=== PATIENT | female | born 1940 | race African-American/Black ===

== ENCOUNTER 2020-10-18 15:54 | Outpatient (CLI) | payer MEDICARE, SELFPAY ==
[2020-10-18 16:17] LABS: Basophils Absolute Auto 0.1 K/mm3 (0.0-0.1); Basophils Percent Auto 0.7 % (0.2-1.2); Eosinophils Absolute Auto 0.1 K/mm3 (0-0.3); Eosinophils Percent Auto 1.3 % (0-4.4); Hematocrit 45.2 % (37.0-47.0); Hemoglobin 14.3 g/dL (12.0-15.0); Immature Granulocyte Absolute 0.02 K/mm3 (0.00-0.031); Immature Granulocyte Percent A 0.2 % (0-0.5); Lymphocytes Absolute Auto 3.08 K/mm3 (0.9-3.2); Lymphocytes Percent Auto 36.6 % (18.3-44.2); Mean Corpuscular HGB Conc 31.6 g/dl (32-36); Mean Corpuscular Hemoglobin 27.9 pg (26-34); Mean Corpuscular Volume 88.3 fl (80-100); Mean Platelet Volume 9.9 fl (7.4-10.4); Monocytes Absolute Auto 0.8 K/mm3 (0.1-0.6); Monocytes Percent Auto 9.5 % (2.6-8.5); Neutrophils Absolute Auto 4.4 K/mm3 (1.3-6.7); Neutrophils Percent Auto 51.7 % (45.5-73.1); Platelet Count Result 287 k/mm3 (150-375); Red Blood Count 5.12 M/mm3 (4.2-5.4); Red Cell Distribution Width 15.7 % (11.5-14.5); White Blood Count 8.4 K/mm3 (4.5-10.0)
[2020-10-18 17:20] LABS: Iron 53 ug/dL (37-170)
[2020-10-18 17:31] LABS: Percent Iron Saturation 14 % (20-50)
== END 2020-10-18 15:55 | disposition home or self-care (01) ==
PROVIDERS: PCP Internal Medicine; Visit Provider Internal Medicine Hematology & Oncology
DX: D47.3 Essential (hemorrhagic) thrombocythemia (principal); D50.9 Iron deficiency anemia, unspecified
CPT/HCPCS: 36415; 82728; 83540; 83550; 85025

== ENCOUNTER 2021-08-08 14:29 | Outpatient (CLI) | payer MEDICARE, SELFPAY ==
[2021-08-08 14:49] LABS: Hematocrit 45.9 % (37.0-47.0); Hemoglobin 14.6 g/dL (12.0-15.0); Mean Corpuscular HGB Conc 31.8 g/dl (32-36); Mean Corpuscular Hemoglobin 27.9 pg (26-34); Mean Corpuscular Volume 87.6 fl (80-100); Mean Platelet Volume 9.6 fl (7.4-10.4); Platelet Count Result 288 k/mm3 (150-375); Red Blood Count 5.24 M/mm3 (4.2-5.4); Red Cell Distribution Width 15.6 % (11.5-14.5); White Blood Count 8.7 K/mm3 (4.5-10.0)
[2021-08-08 14:53] LABS: Blood Urea Nitrogen 17 mg/dL (8-26); Carbon Dioxide 28 mmol/L (22-30); Chloride 97 mmol/L (98-109); Estimated Glomerular Filt Rate > 60; Glucose 72 mg/dL (70-105); Potassium 4.5 mmol/L (3.5-4.9); Sodium 141 mmol/L (138-146)
[2021-08-08 16:24] LABS: Iron 111 ug/dL (37-170)
[2021-08-08 16:36] LABS: Percent Iron Saturation 33 % (20-50)
== END 2021-08-08 14:30 | disposition home or self-care (01) ==
LOC: ANHLAB 14:31
PROVIDERS: PCP Internal Medicine; Visit Provider Internal Medicine Hematology & Oncology
DX: D50.9 Iron deficiency anemia, unspecified (principal)
CPT/HCPCS: 36415; 80048; 82728; 83540; 83550; 85027

== ENCOUNTER 2022-12-20 08:24 | Outpatient (CLI) | payer MEDICARE, SELFPAY ==
--- NOTE | 2022-12-20 09:23 | ECG_ITS ---
Measurements Intervals [place] Rate: 81 P: 32 FL: 147 QRS: -6 QRSD: 97 T: 137 QT: 394 QTc: 458 Interpretive Statements SINUS RHYTHM POSSIBLE LEFT ATRIAL ENLARGEMENT LEFT VENTRICULAR HYPERTROPHY AND ST-T CHANGE BORDERLINE T WAVE ABNORMALITY- ANTEROLATERAL LEADS BORDERLINE ECG NO PREVIOUS ECG AVAILABLE FOR COMPARISON Electronically Signed On 12-20-2022 10:07:53 [employer] by Janes Puga D.O.
[2022-12-20 10:02] LABS: Basophils Absolute Auto 0.1 K/mm3 (0.0-0.1); Basophils Percent Auto 0.7 % (0.2-1.2); Eosinophils Absolute Auto 0.1 K/mm3 (0-0.3); Eosinophils Percent Auto 1.9 % (0-4.4); Hematocrit 45.9 % (37.0-47.0); Hemoglobin 14.5 g/dL (12.0-15.0); Immature Granulocyte Absolute 0.02 K/mm3 (0.00-0.031); Immature Granulocyte Percent A 0.3 % (0-0.5); Lymphocytes Absolute Auto 2.01 K/mm3 (0.9-3.2); Lymphocytes Percent Auto 26.7 % (18.3-44.2); Mean Corpuscular HGB Conc 31.6 g/dl (32-36); Mean Corpuscular Hemoglobin 28.7 pg (26-34); Mean Corpuscular Volume 90.7 fl (80-100); Mean Platelet Volume 10.2 fl (7.4-10.4); Monocytes Absolute Auto 0.8 K/mm3 (0.1-0.6); Monocytes Percent Auto 10.6 % (2.6-8.5); Neutrophils Absolute Auto 4.5 K/mm3 (1.3-6.7); Neutrophils Percent Auto 59.8 % (45.5-73.1); Platelet Count Result 303 k/mm3 (150-375); Red Blood Count 5.06 M/mm3 (4.2-5.4); Red Cell Distribution Width 15.2 % (11.5-14.5); White Blood Count 7.5 K/mm3 (4.5-10.0)
[2022-12-20 10:11] LABS: Albumin Level 4.5 g/dL (3.5-5.1); Anion Gap 6 mmol/L (8-16); Blood Urea Nitrogen 14 mg/dL (7-17); Calcium 9.3 mg/dL (8.4-10.2); Carbon Dioxide 32 mmol/L (22-30); Chloride 101 mmol/L (98-107); Estimated Glomerular Filt Rate > 60; Glucose 92 mg/dL (65-110); Potassium 4.5 mmol/L (3.4-5.0); Sodium 139 mmol/L (137-145)
[2022-12-20 10:46] LABS: Hemoglobin A1C 5.8 % (<5.7)
[2022-12-20 11:22] LABS: Urine Cotinine NEGATIVE
== END 2022-12-20 08:25 | disposition home or self-care (01) ==
LOC: ANHSURGERY 08:29
PROVIDERS: PCP Internal Medicine; Visit Provider Orthopaedic Surgery
DX: M17.0 Bilateral primary osteoarthritis of knee (principal); Z01.818 Encounter for other preprocedural examination; R94.31 Abnormal electrocardiogram [ECG] [EKG]
CPT/HCPCS: 80048; 80307; 82040; 83036; 85025; 87081; 93005

== ENCOUNTER 2022-12-28 08:06 | Outpatient (CLI) | payer MEDICARE, SELFPAY ==
--- NOTE | 2022-12-28 | EST_ITS ---
Patient Info Name: Libby Mcgill Age: 82 years : 1940 Gender: Female Ht: 64 in Wt: 210 lbs BSA: 2.12 m2 HR: 83 bpm BP: 154 / 89 mmHg Exam Date: 12/28/2022 9:55 AM Exam Location: [facility] Stress Patient Status: Outpatient Admit Date: 12/28/2022 Staff Ordering Physician: Lelo Ramos APRN Attending Provider: Lelo Ramos APRN Referring Physician: Alaina Peralta MD; Exercise Technologist: Adriana Moseley RDCS Exercise Physician: Janes Puga DO Exam Type: CA stress karen w NM Study Info Indications - CAD, HTN, PRE-OP A regadenoson stress test was performed. Summary 1. 1. Negative lexiscan stress test for ischemic ST changes by ECG criteria. 2. 2. Baseline hypertension. 3. 3. Nuclear scan to follow and will be reported separately. Please correlate with it. 4. 4. Patient informed of the above results. Protocol: Lexiscan Stress ECG Details Stage: REST Duration (min): 2 min : 8 sec HR (bpm): 81 SBP (mmHg): 154 DBP (mmHg): 89 Stage: REST Duration (min): 7 min : 18 sec HR (bpm): 85 SBP (mmHg): 154 DBP (mmHg): 89 Stage: STAGE 1 Duration (min): 0 min : 59 sec HR (bpm): 92 SBP (mmHg): 159 DBP (mmHg): 85 Stage: RECOVERY Duration (min): 1 min : 0 sec HR (bpm): 95 SBP (mmHg): 149 DBP (mmHg): 83 Stage: RECOVERY Duration (min): 2 min : 0 sec HR (bpm): 94 SBP (mmHg): 149 DBP (mmHg): 83 Stage: RECOVERY Duration (min): 3 min : 0 sec HR (bpm): 91 SBP (mmHg): 157 DBP (mmHg): 82 Stage: RECOVERY Duration (min): 3 min : 9 sec HR (bpm): 93 SBP (mmHg): 157 DBP (mmHg): 82 Rest HR: 85 bpm Peak HR: 96 bpm Rest Sys BP: 154 mmHg Peak Sys BP: 159 mmHg Max Pred HR: 139 bpm % Max Pred HR: 69 % Target HR: 118 bpm Max RPP: 15,264 bpm*mmHg Termination Reason: Completed protocol Cardiac Symptoms: Shortness of breath Total Time: 1 min : 0 sec Rest Powell BP: 89 mmHg Peak Powell BP: 85 mmHg Total Dose: 0.4 mg Resting ECG Sinus rhythm, borderline ST-T wave abnormality in diffuse leads. Stress ECG No ST changes. Arrhythmias None. Report Signatures
--- NOTE | ~2022-12-28 | NM_ITS ---
EXAMINATION: NM karen stress w perfusion DATE: 12/28/2022 11:17 INDICATION: Coronary atherosclerosis. TECHNIQUE: Rest images were obtained following intravenous administration of 11.6 mCi Tc99m tetrofosm in (Myoview). The patient was infused intravenously with Lexiscan (regadenoson). Then, 34.9 mCi Tc99m tetrofosmin (Myoview) was administered intravenously, and stress images were obtained. Data was codie nstructed into short axis and horizontal and vertical long axis SPECT images. Gated SPECT images were also obtained. COMPARISON: None. FINDINGS: There is a large, moderate severity, reversible perfusion defect involving mid to basal ant eroseptal wall, apical to basal anterior wall, and mid to basal anterolateral wall, consistent with i schemia. There is no segmental wall motion abnormality. Left ventricular ejection fraction measures >70%. IMPRESSION: 1. Large area of moderate ischemia involving the mid to basal anteroseptal wall, apical to basal ante rior wall, and mid to basal anterolateral wall of left ventricle. Sensitivity and specificity is decr eased by breast attenuation artifact. 2. Normal left ventricular ejection fraction measuring >70%. Reviewed, dictated and finalized at location A. IMPRESSION: 1. Large area of moderate ischemia involving the mid to basal anteroseptal wall , apical to basal anterior wall, and mid to basal anterolateral wall of left ve ntricle. Sensitivity and specificity is decreased by breast attenuation artifac t. 2. Normal left ventricular ejection fraction measuring >70%.
== END 2022-12-28 08:07 | disposition home or self-care (01) ==
PROVIDERS: PCP Internal Medicine; Referring Provider Internal Medicine Cardiovascular Disease; Visit Provider Nurse Practitioner Family
DX: I25.10 Atherosclerotic heart disease of native coronary artery without angina pectoris (principal); I25.9 Chronic ischemic heart disease, unspecified; I27.0 Primary pulmonary hypertension; R06.02 Shortness of breath; Z87.891 Personal history of nicotine dependence; E78.5 Hyperlipidemia, unspecified; E11.9 Type 2 diabetes mellitus without complications; Z01.810 Encounter for preprocedural cardiovascular examination
CPT/HCPCS: 78452; 93017; A9502; J2785

== ENCOUNTER 2023-03-20 09:15 | Outpatient (CLI) | payer MEDICARE, SELFPAY ==
[2023-03-20 10:38] LABS: Albumin Level 4.3 g/dL (3.5-5.1)
[2023-03-20 10:42] LABS: Anion Gap 2 mmol/L (8-16); Blood Urea Nitrogen 15 mg/dL (7-17); Calcium 9.3 mg/dL (8.4-10.2); Carbon Dioxide 35 mmol/L (22-30); Chloride 101 mmol/L (98-107); Estimated Glomerular Filt Rate > 60; Glucose 105 mg/dL (65-110); Potassium 4.9 mmol/L (3.4-5.0); Sodium 138 mmol/L (137-145)
[2023-03-20 10:44] LABS: Basophils Absolute Auto 0.1 K/mm3 (0.0-0.1); Basophils Percent Auto 0.6 % (0.2-1.2); Eosinophils Absolute Auto 0.1 K/mm3 (0-0.3); Eosinophils Percent Auto 1.2 % (0-4.4); Hematocrit 44.7 % (37.0-47.0); Immature Granulocyte Absolute 0.04 K/mm3 (0.00-0.031); Immature Granulocyte Percent A 0.5 % (0-0.5); Lymphocytes Absolute Auto 2.32 K/mm3 (0.9-3.2); Lymphocytes Percent Auto 27.9 % (18.3-44.2); Mean Corpuscular HGB Conc 31.3 g/dl (32-36); Mean Corpuscular Hemoglobin 28.8 pg (26-34); Monocytes Absolute Auto 0.7 K/mm3 (0.1-0.6); Monocytes Percent Auto 8.3 % (2.6-8.5); Neutrophils Absolute Auto 5.1 K/mm3 (1.3-6.7); Neutrophils Percent Auto 61.5 % (45.5-73.1); Platelet Count Result 304 k/mm3 (150-375); Red Blood Count 4.86 M/mm3 (4.2-5.4); Red Cell Distribution Width 14.9 % (11.5-14.5); White Blood Count 8.3 K/mm3 (4.5-10.0)
[2023-03-20 10:47] LABS: Urine Cotinine NEGATIVE
[2023-03-20 11:12] LABS: Hemoglobin A1C 5.7 % (<5.7)
== END 2023-03-20 09:16 | disposition home or self-care (01) ==
LOC: ANHSURGERY 09:21
PROVIDERS: Anesthesiology; PCP Internal Medicine; Visit Provider Orthopaedic Surgery
DX: Z01.812 Encounter for preprocedural laboratory examination (principal); M17.12 Unilateral primary osteoarthritis, left knee; E11.9 Type 2 diabetes mellitus without complications
CPT/HCPCS: 36415; 80048; 80307; 82040; 83036; 85025; 87081

== ENCOUNTER 2023-04-02 12:54 | Observation (INO) | payer MEDICARE, SELFPAY ==
[2023-03-19 10:31] VITALS: BMI 37.8
--- NOTE | 2023-03-19 11:05 | PC.NURSE ---
PRE-OP INSTRUCTIONS, PLEASE READ CAREFULLY Report to the Outpatient Waiting Room, entrance under the green pavilion located off [facility], at time _0600_ on date _04/01/23_. Planned Procedure Time: _0730_. PACK A SMALL OVERNIGHT BAG AND LEAVE IN THE CAR ALONG WITH YOUR WALKER Time changes happen often and if your time is changed the preop area will call you the afternoon before. - You and your visitor will be asked to self-screen and do not enter if you have any COVID symptoms. - A mask is optional within the hospital at this time. -VISITING HOURS 8AM-8PM Patients may have clear liquids (water, carbonated beverages, clear teas, apple juice) until 3 hours prior to surgery (0430 AM) with a maximum of 20 ounces. - No food from midnight until time of surgery Take the following medications with a SIP of water the morning of surgery: _ARIPIPRAZOLE, PAIN MED & NASAL SPRAY IF NEEDED_ DO NOT STOP ANY OF YOUR OTHER PRESCRIPTION MEDICATIONS PRIOR TO SURGERY ?EXCEPT THE FOLLOWING Medications to discontinue _SULINDAC PER DR. LEAL'S INSTRUCTIONS__ Medications to discontinue per ANESTHESIA - _MULTIVITAMIN 3 DAYS PRIOR TO SURGERY, Date to take last dose 03/28/23_ Please no make-up, nail french, hairspray, perfume, deodorant, or body powder the day of surgery. No jewelry (including any body piercings) or valuables the day of surgery, leave them at home. Please take a shower or bath the night before, or the morning of, surgery with an antibacterial soap. Wear comfortable, loose fitting clothing. - Jewelry must be removed prior to entering the operating room. Rings and piercings that are not removed may be cut off. - The hospital will not accept responsibility for valuables. - Please leave all valuables, including medications, at home the day of surgery. If you are going home after surgery, a licensed lumber stacker driver must drive you home. - NO public transportation without another adult if you receive anesthesia. - We recommend that an adult stay with you for 24 hours following discharge. - We also recommend that you do not drive, make important decision, drink alcoholic beverages, or take any drugs that were not prescribed by your health care provider for at least 24 hours after your discharge time. Follow any additional instructions given to you from your surgeon. If you or anyone in your household have experienced Covid symptoms in the past week, please notify your surgeon or the nurse liaison at the phone number below for possible testing. Telephone instructions given to _PATIENT_and asked if any additional questions and then verbalized understanding. Patient advised to call surgeon office or pre surgery nurse liaison [phone] if any additional questions.
[2023-04-01] VITALS (16 sets, daily range): BP systolic 122–189; BP diastolic 59–90; PULSE 69–99; RESP 12–18; TEMP 36–37.1; O2SAT 94–100
--- NOTE | 2023-04-01 07:56 | WPDANESEPPF ---
Anes - Initial Pre Proc Eval Procedure: Operation Date: 04/01/23 07:30 Proposed Procedures p Right Total Knee Arthroplasty, Left Knee Injection - Salvatore Mike MD Date/Time: 04/01/23 07:56 Surgeon: Salvatore Mike MD Pre Op Diagnosis: bilat OA knees Patient Data Age: 82 Gender: F Height: 1.63 m Weight: 100 kg Allergies Allergy/AdvReac Type Severity Reaction Status Date / Time lisinopril Allergy Severe Anaphylaxis Verified 03/20/23 08:34 Penicillins Allergy Unknown Rash Verified 03/20/23 08:34 aspirin Allergy Nausea Verified 03/20/23 08:34 Home Medications Medication Instructions Recorded Confirmed Type amlodipine 10 mg tablet 10 mg PO HS 10/06/19 03/20/23 History calcium carbonate 500 mg calcium 500 mg PO DAILY 10/06/19 03/20/23 History (1,250 mg) tablet (Calcium 500) duloxetine 30 mg capsule,delayed 60 mg PO HS 10/06/19 03/20/23 History release fluticasone propionate 50 1 spray intranasal BID PRN 10/06/19 03/20/23 History mcg/actuation nasal Congestion spray,suspension insulin detemir U-100 100 unit/mL 30 unit subcut HS 10/06/19 03/20/23 History (3 mL) subcutaneous pen iron 18 mg tablet 18 mg PO DAILY 10/06/19 03/20/23 History multivitamin (Daily Multi-Vitamin 1 tablet PO DAILY 10/06/19 03/20/23 History tablet) omeprazole 40 mg capsule,delayed 40 mg PO HS 10/06/19 03/20/23 History release potassium 75 mg tablet 1 mg PO HS 10/06/19 03/20/23 History rosuvastatin 40 mg tablet 40 mg PO HS 10/06/19 03/20/23 History sulindac 200 mg tablet 200 mg PO HS 10/06/19 03/20/23 History tolterodine 2 mg tablet 2 mg PO HS 10/06/19 03/20/23 History aripiprazole 2 mg tablet 2 mg PO DAILY 07/16/22 03/20/23 History polyethylene glycol 3350 17 17 g PO DAILY 12/20/22 03/20/23 History gram/dose oral powder (Miralax) timolol maleate 0.5 % eye drops 1 drp BID 03/19/23 03/20/23 History tramadol 50 mg tablet 1 mg BID PRN Pain 03/19/23 03/20/23 History Patient hx anesthesia problems: none Family hx anesthesia problems: none Results Review: All pre-operative results and documents have been reviewed as part of the pre-operative evaluation. 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 Hypertension Neuropathy Obesity Sleep apnea Ulcer Urinary problem INCONTINENCE Surgical History Surgical History H/O colonoscopy H/O tubal ligation H/O: hysterectomy VAGINAL History of tonsillectomy Social History Social History Years smoked: 10 Smoking status: Former smoker Tobacco type: cigarettes Second hand tobacco smoke exposure: No Smoking end date: 10/14/74 Additional smoking assessment comments: PT DENIES ALL FORMS OF TOBACCO USE Alcohol intake: current Drinks per week: 3 Alcohol use details: STATES 0-3/WEEK Substance use: never Substance use type: does not use Lack of Transportation: No Lack of Food: Never True Current Housing: I Have Housing Concerned About Future Housing: No Difficulty Paying Gas/Electric Bills: No Difficulty Paying for Meds: No Currently Unemployed: No Education: Master's Degree or Higher Difficulty w/ Childcare or Family Care: No Living arrangements: with family Additional living arrangements comments: Occupation/Education: retired Gender identity (if verbalized by the patient): Female Sexual Orientation (if Verbalized by the Patient): Straight or Heterosexual Spiritual care concerns: Yes ( Moravian) Agree to blood products: No Anes - Eval Final PreProcedure Day of Procedure 04/01/23 07:56 Patient weight: obese Heart: regular rate and rhythm Lungs: clear to auscultation Airway:
--- NOTE | 2023-04-01 08:03 | WPDHPUPDATE1 ---
History and Physical Update Update Date/Time: 04/01/23 08:03 History and Physical has been reviewed, including an updated exam of the patient. There are NO changes in the patient's condition. Risks, benefits, and alternatives have been discussed and questions answered. Patient agrees to proceed with procedure.
[2023-04-01 08:22] LABS: Glucose Point of Care 112 mg/dl (65-105)
[2023-04-01] MEDS: ACETAMINOPHEN 500 MG TABLET 1000 MG PO (08:25)
[2023-04-01] MEDS: TRANEXAMIC ACID 1,000MG/ISO100 1,000 MG/100 ML BAG 200 MG IVPB (08:25)
[2023-04-01] MEDS: LACTATED RINGERS 1,000 ML 30 ML IV CONT ×2 (08:25→12:16)
--- NOTE | 2023-04-01 08:36 | WPDANESPNB ---
Anes - Peripheral Nerve Block Date/Time: 04/01/23 08:36 I have discussed with the patient/family/POA the placement of a peripheral nerve block for post-operative pain management, including associated risks, benefits, complications, and side effects. Alternative methods of post-operative analgesia were detailed. Questions were solicited and answers provided to the satisfaction of the patient/family/POA. Time-Out: A pre-procedural Time-Out was completed immediately before starting the procedure and confirmed: Patient Identification, Site, Procedure, Patient Position and the Availability of Requisite Equipment. Clinical Indications: Acute post-operative pain management requested by the operative surgeon. Nerve Block Insertion Note Anes-nerve block: adductor canal right Patient position: supine Skin prep: chlorhexidine Needle: 22 gauge, stimulating, insulated echogenic needle. Needle length: 80 mm Technique: ultrasound Injectate: bupivacaine 0.5% with epi 5 mcg/ml (20cc no epi) Observations: tolerated well Complications: none Procedure start time:: 834 Procedure end time:: 839
[2023-04-01] MEDS: ceFAZolin 2 GM/D5W 50 ML 2 GM/50 ML BAG IVPB ×2 (08:51→16:32)
--- NOTE | 2023-04-01 08:56 | SUR.PREOP ---
dr lee told us not to shave, ramez did notice a few hairs on glez, but dr lee said not to worry about shaving her.
[2023-04-01] MEDS: GENTAMICIN BONE CEMENT REFOBACIN 1 EACH TOPICAL (10:00)
[2023-04-01] MEDS: LIDOCAINE HCL 1% LOCAL INJ 20 ML VIAL INFILTRATE (10:47)
[2023-04-01] MEDS: ceFAZolin SODIUM 1 GM VIAL IV PUSH (11:20)
--- NOTE | 2023-04-01 12:14 | W.PM.PROC2 ---
Procedure Note - Detailed Date of Procedure 04/01/23 Pre-op Diagnosis bilat OA knees Post-op Diagnosis Same Procedure Performed 1. Right total knee replacement 2. Injection left knee Surgeon Salvatore Mike MD Experienced Truck Driver Ana Maurice Anesthesia General and Regional Description of Procedure The patient was identified and proper site identified. In the preop holding area the anesthesia team performed a right-sided sub sartorial block after which the patient was taken to the operating room and transferred to the OR table positioning supine taking care to pad the torso and extremities. After general anesthetic induction and intubation a nonsterile tourniquet was placed high on the right thigh. While the right leg was being prepped, the left knee was injected intra-articularly with 2 milliliters of 1% lidocaine and 20 milligrams of Kenalog. Band-Aid was applied. The Right lower extremity was prepped and draped in the usual sterile fashion. The extremity was exsanguinated and with the knee flexed tourniquet was inflated to 300 mmHg remaining up for approximately 13 minutes initially. It then was down for 117 minutes and then reinflated for an additional 25 minutes towards the end of the procedure. An anterior midline incision was made and a modified medial parapatellar approach was used. Infra and suprapatellar fat pads were excised. Patella was resected leaving 15 mm thickness and prepared for the size 29 round three peg component. At this point it was evident that we had a venous tourniquet because of the girth of her thigh so the tourniquet was released for the majority of the procedure. Using the intramedullary guide the distal femur was cut in the proper orientation for the size six femoral component. Using the extramedullary guide the tibia was cut perpendicular to the long axis protecting collateral ligaments and popliteal structures. It was sized to a 6 minus. Flexion and extension gaps were balanced. Trial reduction was undertaken and the weight-bearing line was noted to passed through the center of the joint. Proximal tibia was drilled and punched in the proper orientation for the real component. The extremity was re-exsanguinated and the tourniquet reinflated to 300 millimeters of mercury for the final 25 minutes. Trial components were removed. The bone surfaces were washed with pulsatile lavage and dried. The real components were cemented simultaneously. The knee was held in extension and the patella held clamped until the cement had cured. The tourniquet was released. Excess cement was removed from the joint. After trialing it was determined that the Size 14 mm insert gave full range of motion from 0-115 degrees of flexion and the patella tracked in the femoral groove with no lift-off. After final lavage the joint the real size 14 E poly insert was placed and secured with a locking bar. A Betadine and saline wash was placed into the wound and allowed to sit for approximately 3 minutes and then evacuated. Periarticular tissues were infiltrated with 60 cc of the arthroplasty solution. Surgicel powder was applied into the wound during the closure. The extensor mechanism was repaired with #2 Vicryl suture and 0 looped PDS suture. Subcu was reapproximated with 3-0 Monocryl, 2-0 Quill and tissue adhesive for the skin. A sterile dressing was applied. she tolerated the procedure well, was awakened and extubated, transferred to the bed and was taken to recovery area in stable condition. There were no known intraoperative complications. Perioperative antibiotics were administered. Estimated Blood Loss 500 Tourniquet Time 38 ( that was total tourniquet time. It was up for 13 minutes and then 25 minutes.) Drains No Packing No Pathology None sent Complications No immediate complications Condition Stable Disposition PACU [facility] Billing Surgery - Charge Forward: Surgery Billing ([id number]; [id number])
[2023-04-01 12:26] LABS: Glucose Point of Care 138 mg/dl (65-105)
[2023-04-01] MEDS: fentaNYL CITRATE INJ (*CRX) 100 MCG/2 ML VIAL 25 MCG IV PUSH ×3 (12:46→13:52)
[2023-04-01] MEDS: HYDROcodone/acetaminophen (*CRX) 7.5-325 MG TABLET 1 TAB PO ×2 (15:39→21:36)
[2023-04-01 16:29] LABS: Glucose Point of Care 190 mg/dl (65-105)
[2023-04-01] MEDS: TIMOLOL MALEATE 0.5% OP SOLN 5 ML BOTTLE 1 DROP EACH EYE (16:30)
[2023-04-01] MEDS: SENNA/DOCUSATE SODIUM TABLET 2 TAB PO (16:31)
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
--- NOTE | 2023-04-01 16:59 | ADMGEN ---
This patient, Libby Mcgill, was admitted to [facility] Surg Room 314-01. Patient/family oriented to hospital policies and general routines including ID bracelet, bed and alarms, visiting hours, pain management, procedures, bathroom and other care routines, personal items, smoking policy, room service/diet, and visiting hours. Information on how to activate the Rapid Response Team has been discussed. Patient/Family are encouraged to report perceived risks to care and to ask questions if they do not understand what they are told or what they should do.
--- NOTE | 2023-04-01 16:59 | PC.NURSE ---
Pt sleeping when she arrived to the floor post op. Pt reports pain in the right knee. Pt states it feels like a hammer hitting her knee. Pt treated with scheduled [place]. Pt expresses no other needs at this time. Pt resting in bed with at bedside. Cold therapy ordered and will apply when delivered to unit. Will continue to monitor pt for any changes in status.
[2023-04-01] MEDS: TOLTERODINE TARTRATE 2 MG TABLET PO (21:35)
[2023-04-01] MEDS: amLODIPine BESYLATE 5 MG TABLET 10 MG PO (21:35)
[2023-04-01] MEDS: DULoxetine HCL 60 MG CAPSULE.DR PO (21:36)
[2023-04-01] MEDS: ROSUVASTATIN 10 MG TABLET 40 MG PO (21:36)
[2023-04-01] MEDS: PANTOPRAZOLE 40 MG TABLET PO (21:36)
--- NOTE | ~2023-04-02 | XR_ITS ---
Right Knee Technique: Portable AP and crosstable lateral views Clinical History: Status post TKR Findings: Patient is status post total knee replacement. Orthopedic hardware alignment appears anatom ic. No hardware complication is evident. Subcutaneous emphysema and swelling is likely postoperative in nature. No acute osseous fracture is seen. Impression: Status post total knee replacement, without evidence of hardware complication. Reviewed, dictated and finalized at location . Impression: Status post total knee replacement, without evidence of hardware complication.
[2023-04-02] MEDS: FLUTICASONE PROPIONATE 0.05% NA SPR 16 GM BTL (*BKC) 1 SPRAY NASAL (00:38)
[2023-04-02] MEDS: HYDROcodone/acetaminophen (*CRX) 7.5-325 MG TABLET 1 TAB PO ×6 (00:38→20:07)
[2023-04-02] MEDS: ceFAZolin 2 GM/D5W 50 ML 2 GM/50 ML BAG IVPB ×2 (00:40→09:41)
[2023-04-02 06:00] VITALS: BP 127/63; PULSE 82; RESP 14; TEMP 36.6; O2SAT 97
[2023-04-02 06:23] LABS: Basophils Percent Auto 0.1 % (0.2-1.2); Hematocrit 35.4 % (37.0-47.0); Hemoglobin 11.3 g/dL (12.0-15.0); Immature Granulocyte Absolute 0.06 K/mm3 (0.00-0.031); Immature Granulocyte Percent A 0.4 % (0-0.5); Lymphocytes Absolute Auto 1.71 K/mm3 (0.9-3.2); Lymphocytes Percent Auto 11.3 % (18.3-44.2); Mean Corpuscular HGB Conc 31.9 g/dl (32-36); Mean Corpuscular Hemoglobin 29.4 pg (26-34); Mean Corpuscular Volume 92.2 fl (80-100); Mean Platelet Volume 9.8 fl (7.4-10.4); Monocytes Absolute Auto 1.4 K/mm3 (0.1-0.6); Monocytes Percent Auto 8.9 % (2.6-8.5); Neutrophils Percent Auto 79.3 % (45.5-73.1); Platelet Count Result 272 k/mm3 (150-375); Red Blood Count 3.84 M/mm3 (4.2-5.4); Red Cell Distribution Width 14.8 % (11.5-14.5); White Blood Count 15.1 K/mm3 (4.5-10.0)
[2023-04-02 06:33] LABS: Hemoglobin A1C 5.6 % (<5.7)
[2023-04-02 06:38] LABS: Anion Gap 5 mmol/L (8-16); Blood Urea Nitrogen 15 mg/dL (7-17); Calcium 8.4 mg/dL (8.4-10.2); Carbon Dioxide 29 mmol/L (22-30); Chloride 102 mmol/L (98-107); Estimated CRCL calculation 61 ml/min; Estimated Glomerular Filt Rate > 60; Glucose 179 mg/dL (65-110); Potassium 4.6 mmol/L (3.4-5.0); Sodium 136 mmol/L (137-145)
[2023-04-02 07:34] LABS: Glucose Point of Care 185 mg/dl (65-105)
[2023-04-02] MEDS: CALCIUM CARBONATE (OSCAL) 500 MG TABLET PO (09:37)
[2023-04-02] MEDS: MULTIVITAMINS THERAPEUTIC TAB (*BKC) 1 TABLET PO (09:37)
[2023-04-02] MEDS: PANTOPRAZOLE 40 MG TABLET PO ×2 (09:38→20:07)
[2023-04-02] MEDS: SENNA/DOCUSATE SODIUM TABLET 2 TAB PO ×2 (09:38→18:26)
[2023-04-02] MEDS: FERROUS SULFATE DRIED 142 MG TABCR PO (09:38)
[2023-04-02] MEDS: RIVAROXABAN 10 MG TABLET PO (09:38)
[2023-04-02] MEDS: TIMOLOL MALEATE 0.5% OP SOLN 5 ML BOTTLE 1 DROP EACH EYE ×2 (09:38→18:26)
[2023-04-02] MEDS: ARIPiprazole 2 MG TABLET PO (09:38)
[2023-04-02] MEDS: polyethylene glycoL 3350 17 GM POWD.PACK PO (09:39)
[2023-04-02 10:02] VITALS: O2SAT 94
[2023-04-02 11:16] LABS: Glucose Point of Care 147 mg/dl (65-105)
--- NOTE | 2023-04-02 11:19 | PM.PNORT ---
Progress Note: A&P Assessment and Plan (1) S/P total knee arthroplasty: Code(s): Z96.659 - Presence of unspecified artificial knee joint Status: Acute Plan 82-year-old female postop day 1 after right total knee arthroplasty. Overall doing well. Pressure dressing has been applied to the distal portion of the surgical incision. No sign of infection. Will continue to monitor this. Will plan on discharge tomorrow. This should give us enough time to have home PT set up for her. Subjective Subjective Date/Time Seen: 04/02/23 11:20 Interval history: 82-year-old female postop day 1 after right total knee arthroplasty. Overall doing very well. She has had some drainage from the distal part of the surgical incision. She feels that she is progressing well with therapy. Appreciate hospitalist consult. Review of Systems Constitutional: Constitutional: Denies chills, Denies fever(s), Denies night sweats and Denies weakness Eyes: Eyes: Denies change in vision ENT: Reports Normal hearing present and Denies dizziness Cardiovascular: Cardiovascular: Denies chest pain, Denies lightheadedness and Denies dyspnea on exertion Respiratory: Respiratory: Denies dyspnea on exertion Gastrointestinal: Gastrointestinal: Denies abdominal pain Genitourinary: Genitourinary: Denies dysuria Musculoskeletal: Musculoskeletal: Reports no additional musculoskeletal complaints and Reports as per HPI Integumentary/Breasts: Skin/Breast: Denies lesions and Denies wounds Neurologic: Reports Normal hearing present, Denies confusion, Denies dizziness and Denies weakness Psychiatric: Psychiatric: Denies confusion and Denies paranoia Hematologic/Lymphatic: Hematologic/Lymphatic: Denies easy bleeding and Denies easy bruising Exam Const: General: comfortable and no acute distress Resp: Effort & Inspection: normal respiratory effort GI: Inspection: non-distended Skin: General skin exam: normal color, no rashes or lesions noted and no erythema Other: Exam of the surgical dressing shows that there is serosanguineous drainage at the distal portion of the site. Gauze and pressure dressing was applied. Neuro: Sensory Exam: normal sensation Extrem: Other: Exam of the right knee demonstrates swelling consistent with recent surgical procedure. No erythema. Neurovascular status right lower extremity is intact. Psych: Mental Status: mental status grossly normal Objective Data Vital Signs Vital Signs: Vital Signs - 24 hr 04/01/23 12:16 04/01/23 12:30 04/01/23 12:45 Temperature 97.9 F Pulse Rate 73 73 79 Respiratory Rate 12 14 12 Blood Pressure 181/87 H 163/84 H 189/89 H Pulse Oximetry 100 99 100 Oxygen Delivery Simple Face Mask Simple Face Mask Simple Face Mask Oxygen Flow Rate 6 6 6 04/01/23 13:00 04/01/23 13:15 04/01/23 13:30 Temperature Pulse Rate 82 82 84 Respiratory Rate 12 12 12 Blood Pressure 175/89 H 164/86 H 179/90 H Pulse Oximetry 97 96 97 Oxygen Delivery Nasal Cannula Nasal Cannula Nasal Cannula Oxygen Flow Rate 2 2 2 04/01/23 13:45 04/01/23 13:55 04/01/23 14:13 Temperature 97.2 F L 97.6 F Pulse Rate 84 79 79 Respiratory Rate 12 14 14 Blood Pressure 177/70 H 139/80 132/78 Pulse Oximetry 96 97 100 Oxygen Delivery Nasal Cannula Nasal Cannula Oxygen Flow Rate 2 2 04/01/23 14:42 04/01/23 15:43 04/01/23 19:43 Temperature 97.9 F 97.7 F 98.7 F Pulse Rate 89 99 86 Respiratory Rate 14 14 18 Blood Pressure 144/70 H 130/71 128/63 Pulse Oximetry 100 98 97 Oxygen Delivery Oxygen Flow Rate 04/01/23 22:00 04/01/23 22:46 04/01/23 23:43 Temperature 97.9 F 97.8 F Pulse Rate 85 69 89 Respiratory Rate 14 16 16 Blood Pressure 122/59 L 158/61 H Pulse Oximetry 96 94 100 Oxygen Delivery CPAP Oxygen Flow Rate 04/02/23 06:00 04/02/23 07:52 04/02/23 09:47 Temperature 97.8 F Pulse Rate 82 Respiratory Rate 14 Blood Pressure 127/63 Pulse Oximetry 97 Oxygen
--- NOTE | 2023-04-02 11:47 | PM.IMPN ---
Progress Note: A&P Assessment and Plan (1) S/P total knee arthroplasty: Code(s): Z96.659 - Presence of unspecified artificial knee joint Status: Acute Assessment and Plan: Postop care per Dr. Mike DVT prophylaxis per Orthopedic the patient is on Xarelto and has SCDs Pain management per Ortho. PT OT per ortho. (2) Diabetes: Code(s): E11.9 - Type 2 diabetes mellitus without complications Status: Acute Assessment and Plan: Accu-Cheks AC and HS with sliding scale insulin. Continue with diabetic on the treated carbohydrate diet (3) Hypertension: Code(s): I10 - Essential (primary) hypertension Status: Acute Assessment and Plan: Continue with amlodipine (4) Depression: Code(s): F32.A - Depression, unspecified Status: Acute Assessment and Plan: Continue with Abilify (5) Anxiety: Code(s): F41.9 - Anxiety disorder, unspecified Status: Acute Assessment and Plan: Continue with duloxetine (6) Sleep apnea: Code(s): G47.30 - Sleep apnea, unspecified Status: Acute Assessment and Plan: I did order her a CPAP. The patient stated that her CPAP was too big to bring here with her today. (7) Hyperlipidemia: Code(s): E78.5 - Hyperlipidemia, unspecified Status: Acute Assessment and Plan: Continue with Crestor Plan Thank you for this consult. We will continue to manage alongside you. Subjective Date/time seen: 04/02/23 11:47 Interval history: No complaints today. Vitals are stable. Exam Const: General: cooperative, healthy appearing, comfortable, no acute distress, well developed, awake, Physically active, average body habitus and well nourished Nutritional Appearance: average body habitus and well nourished Orientation/consciousness: oriented to person, oriented to place, oriented to time and patient oriented x3 Limitations: no limitations HENMT: Head: normal to inspection, No palpable skull fracture present, normocephalic, atraumatic and abrasion Ears: hearing grossly normal bilaterally and external ears normal Face/Nose/Sinus: Normal external nose present and Normal nares present Eyes: General: appearance normal, both eyes and all related structures Alignment and Position: alignment normal Periorbital: periorbital findings normal Eyelids: eyelids normal Cornea: corneas normal Pupils: Equal, round and reactive pupils present EOM: EOMs intact bilaterally Neck: Neck: normal visual inspection, full ROM, no lymphadenopathy, trachea midline and supple Chest: Chest palpation & inspection: normal inspection of the chest Resp: Effort & Inspection: normal respiratory effort Auscultation: clear to auscultation bilaterally Cardio: Palpation: normal PMI Rate: regular rate Rhythm: regular rhythm Heart sounds: S1 normal heart sound present and S2 normal heart sound present Peripheral pulses: Peripheral pulses 2+ throughout GI: Inspection: normal to inspection Auscultation: normal bowel sounds Rectal Exam: deferred Back/Spine/Pelvis: Cervical Spine: cervical ROM normal Skin: General skin exam: normal color Lesions: no lesions Rashes: no rashes Trauma: no lacerations or abrasions Wounds: no wounds Hair: normal Nails: normal Neuro: General: oriented to person, oriented to place, oriented to time and patient oriented x3 Cranial nerves: Yes Equal, round and reactive pupils present and Yes Normal hearing present Cognition (Neuro): normal cognition Speech: normal speech Motor exam (neuro): 5/5 motor strength present throughout Sensory Exam: normal sensation Extrem: General: normal to inspection Right upper extremity: normal to inspection and shoulder/upper arm Left upper extremity: normal to inspection and shoulder/upper arm Right lower extremity: knee (Dressing intact but she has some bloody drainage portion of the dressing.) Left lower extremity: knee (Band-Aid intact to left knee) Psy
--- NOTE | 2023-04-02 13:20 | PCPTNOTE ---
On 04/02/23, the student, [Margie Alfaro], provided care and completed [facility] documentation on this patient. I have reviewed the student's documentation and agree with the findings.
--- NOTE | 2023-04-02 13:42 | WPDANESPN ---
Anes - Prog Note Post-Op Date/Time: 04/02/23 13:42 Vital Signs: Last Vital Signs Temp 36.6 C 04/02/23 06:00 Pulse 82 04/02/23 06:00 Resp 14 04/02/23 06:00 BP 127/63 04/02/23 06:00 Pulse Ox 94 04/02/23 10:02 O2 Del Method Room Air 04/02/23 10:02 O2 Flow Rate 2 04/01/23 13:55 Pain Score (VAS): 2 I/O: Intake & Output 04/01/23 04/02/23 04/02/23 23:59 07:59 15:59 Intake Total 1877 753 0093 Output Total 600 1300 Balance 850 750 -238 Laboratory Tests 04/02/23 06:09 04/02/23 06:09 04/01/23 04/02/23 04/02/23 16:26 06:09 07:31 WBC 15.1 H RBC 3.84 L Hgb 11.3 L Hct 35.4 L MCV 92.2 MCH 29.4 MCHC 31.9 L RDW 14.8 H Plt Count 272 MPV 9.8 Immature Gran % (Auto) 0.4 Neut % (Auto) 79.3 H Lymph % (Auto) 11.3 L Fountain % (Auto) 8.9 H Eos % (Auto) 0.0 Baso % (Auto) 0.1 L Lymph # (Auto) 1.71 Fountain # (Auto) 1.4 H Eos # (Auto) 0.0 Baso # (Auto) 0.0 Abs Immat Gran (auto) 0.06 H Absolute Neuts (auto) 12.0 H Absolute Nucleated RBC 0.0 Nucleated RBC % 0.0 Sodium 136 L Potassium 4.6 Chloride 102 Carbon Dioxide 29 Anion Gap 5 L BUN 15 Creatinine 0.70 Estim Creat Clear Calc 61 Estimated GFR > 60 Glucose 179 H POC Capillary Glucose 190 H 185 H Hemoglobin A1c 5.6 Calcium 8.4 04/02/23 11:12 WBC RBC Hgb Hct MCV MCH MCHC RDW Plt Count MPV Immature Gran % (Auto) Neut % (Auto) Lymph % (Auto) Fountain % (Auto) Eos % (Auto) Baso % (Auto) Lymph # (Auto) Fountain # (Auto) Eos # (Auto) Baso # (Auto) Abs Immat Gran (auto) Absolute Neuts (auto) Absolute Nucleated RBC Nucleated RBC % Sodium Potassium Chloride Carbon Dioxide Anion Gap BUN Creatinine Estim Creat Clear Calc Estimated GFR Glucose POC Capillary Glucose 147 H Hemoglobin A1c Calcium Patient Feedback: Patient satisfied with anesthetic care.
[2023-04-02 14:00] VITALS: BP 129/46; PULSE 78; RESP 15; TEMP 37.2; O2SAT 99
[2023-04-02 16:30] LABS: Glucose Point of Care 145 mg/dl (65-105)
[2023-04-02 20:00] VITALS: PULSE 90; RESP 18; O2SAT 99
[2023-04-02] MEDS: DULoxetine HCL 60 MG CAPSULE.DR PO (20:07)
[2023-04-02] MEDS: amLODIPine BESYLATE 5 MG TABLET 10 MG PO (20:07)
[2023-04-02] MEDS: ROSUVASTATIN 10 MG TABLET 40 MG PO (20:07)
[2023-04-02] MEDS: TOLTERODINE TARTRATE 2 MG TABLET PO (20:08)
[2023-04-02 20:17] VITALS: BP 127/45; PULSE 90; RESP 18; TEMP 36.6; O2SAT 99
[2023-04-02 20:42] LABS: Glucose Point of Care 178 mg/dl (65-105)
[2023-04-03] MEDS: HYDROcodone/acetaminophen (*CRX) 7.5-325 MG TABLET 1 TAB PO ×6 (01:30→20:06)
[2023-04-03 05:59] VITALS: BP 155/55; PULSE 95; RESP 18; TEMP 36.4; O2SAT 95
[2023-04-03 07:51] LABS: Glucose Point of Care 123 mg/dl (65-105)
[2023-04-03 08:00] VITALS: PULSE 95; RESP 18; O2SAT 95
[2023-04-03] MEDS: SENNA/DOCUSATE SODIUM TABLET 2 TAB PO ×2 (08:32→17:42)
[2023-04-03] MEDS: PANTOPRAZOLE 40 MG TABLET PO ×2 (08:32→20:06)
[2023-04-03] MEDS: CALCIUM CARBONATE (OSCAL) 500 MG TABLET PO (08:32)
[2023-04-03] MEDS: FERROUS SULFATE DRIED 142 MG TABCR PO (08:32)
[2023-04-03] MEDS: RIVAROXABAN 10 MG TABLET PO (08:32)
[2023-04-03] MEDS: MULTIVITAMINS THERAPEUTIC TAB (*BKC) 1 TABLET PO (08:32)
[2023-04-03] MEDS: ARIPiprazole 2 MG TABLET PO (08:32)
--- NOTE | 2023-04-03 08:32 | PM.PNORT ---
Progress Note: A&P Assessment and Plan (1) S/P total knee arthroplasty: Qualifiers: Laterality: right Qualified Code(s): Z96.651 - Presence of right artificial knee joint Code(s): Z96.659 - Presence of unspecified artificial knee joint Status: Acute Plan 82-year-old female postop day two right knee replacement. We use a Mepilex dressing along the entire incision along with a and Matt wrap. Plan on therapy today and we will sort out her home health PT with care coordination. Hopefully go home tomorrow. Appreciate the hospitalists input. Subjective Subjective Date/Time Seen: 04/03/23 08:32 Post Op day: 2 Principal diagnosis: Right total knee replacement, left knee injection Interval history: This document created with [id number] technology and is subject to java web user interface developer irregularities. a 2-year-old female who is postop day two right total knee replacement, left knee injection. Had a little bit rougher day yesterday and is not getting around as well. Presumably this is because the block other injectable medication has started to wear off. Review of Systems Constitutional: Constitutional: Denies anorexia Eyes: Eyes: Denies irritation and Denies loss of vision ENT: Reports Normal hearing present Cardiovascular: Cardiovascular: Denies chest pain and Denies dyspnea on exertion Respiratory: Respiratory: Denies cough and Denies dyspnea on exertion Gastrointestinal: Gastrointestinal: Denies abdominal pain and Denies bloating Genitourinary: Genitourinary: Denies dysuria Musculoskeletal: Musculoskeletal: Denies arthralgias Integumentary/Breasts: Skin/Breast: Denies skin ulcer Neurologic: Reports Normal hearing present and Denies loss of vision Hematologic/Lymphatic: Hematologic/Lymphatic: Denies easy bleeding Exam Const: General: cooperative, no acute distress and alert Nutritional Appearance: other Orientation/consciousness: patient oriented x3 HENMT: Head: normal to inspection Chest: Chest palpation & inspection: normal inspection of the chest Resp: Effort & Inspection: normal respiratory effort and able to speak in complete sentences GI: Inspection: non-distended Neuro: General: patient oriented x3 Cognition (Neuro): normal cognition Speech: normal speech Extrem: General: normal to inspection and other Other: Exam of Right knee does demonstrate well-opposed incision. There is a couple of small spots that look like there has been some scant drainage. Neurovascular status right lower extremity unremarkable. Calves negative. Some crepitus in the left knee but minimal irritability today. Psych: Appearance: grossly normal Mental Status: mental status grossly normal Objective Data Vital Signs Vital Signs: Vital Signs - 24 hr 04/02/23 09:47 04/02/23 10:02 04/02/23 14:00 Temperature 99 F Pulse Rate 78 Respiratory Rate 15 Blood Pressure 129/46 L Pulse Oximetry 94 99 Oxygen Delivery Room Air Room Air 04/02/23 20:17 04/02/23 20:00 04/03/23 05:59 Temperature 97.9 F 97.5 F L Pulse Rate 90 90 95 Respiratory Rate 18 18 18 Blood Pressure 127/45 L 155/55 H Pulse Oximetry 99 99 95 Oxygen Delivery Room Air Intake/Output Intake/Output: Intake & Output 03/31/23 04/01/23 04/02/23 04/03/23 23:59 23:59 23:59 23:59 Intake Total 1900 / 1900 2892 / 2892 Output Total 600 / 600 1300 / 1300 Balance 1300 / 1300 1592 / 1592 Meds/Results Medications: Active Medications Generic Name Dose Route Start Last Admin Trade Name Freq PRN Reason Stop Dose Admin Hydrocodone Bitart/Acetaminophen 1 tab 04/01/23 13:58 04/03/23 05:05 Hydrocodone/Acetaminophen (*Crx) 7.5-325 Mg Tablet PO 1 tab Q4HR KATHE Administration Amlodipine Besylate 10 mg 04/01/23 21:00 04/02/23 20:07 Amlodipine Besylate 5 Mg Tablet PO 10 mg HS KATHE Administration Aripiprazole 2 mg 04/02/23 09:00 04/02/23 09:38 Aripiprazole 2 Mg Tablet
[2023-04-03] MEDS: polyethylene glycoL 3350 17 GM POWD.PACK PO (08:33)
--- NOTE | 2023-04-03 10:50 | PM.IMPN ---
Progress Note: A&P Assessment and Plan (1) S/P total knee arthroplasty: Qualifiers: Laterality: right Qualified Code(s): Z96.651 - Presence of right artificial knee joint Code(s): Z96.659 - Presence of unspecified artificial knee joint Status: Acute Assessment and Plan: Postop care per Dr. Mike DVT prophylaxis per Orthopedic the patient is on Xarelto and has SCDs Pain management per Ortho. PT OT per ortho. (2) Diabetes: Code(s): E11.9 - Type 2 diabetes mellitus without complications Status: Acute Assessment and Plan: Accu-Cheks AC and HS with sliding scale insulin. Continue with diabetic on the treated carbohydrate diet (3) Hypertension: Code(s): I10 - Essential (primary) hypertension Status: Acute Assessment and Plan: Blood pressure elevated. Will add hydrochlorothiazide. Continue with amlodipine (4) Depression: Code(s): F32.A - Depression, unspecified Status: Acute Assessment and Plan: Continue with Abilify (5) Anxiety: Code(s): F41.9 - Anxiety disorder, unspecified Status: Acute Assessment and Plan: Continue with duloxetine (6) Sleep apnea: Code(s): G47.30 - Sleep apnea, unspecified Status: Acute Assessment and Plan: On a CPAP. (7) Hyperlipidemia: Code(s): E78.5 - Hyperlipidemia, unspecified Status: Acute Assessment and Plan: Continue with Crestor Subjective Date/time seen: 04/03/23 10:50 Interval history: No change Review of Systems Constitutional: Constitutional: Denies anorexia Eyes: Eyes: Denies irritation and Denies loss of vision ENT: Reports Normal hearing present Cardiovascular: Cardiovascular: Denies chest pain and Denies dyspnea on exertion Respiratory: Respiratory: Denies cough and Denies dyspnea on exertion Gastrointestinal: Gastrointestinal: Denies abdominal pain and Denies bloating Genitourinary: Genitourinary: Denies dysuria Musculoskeletal: Musculoskeletal: Denies arthralgias Integumentary/Breasts: Skin/Breast: Denies skin ulcer Neurologic: Reports Normal hearing present and Denies loss of vision Hematologic/Lymphatic: Hematologic/Lymphatic: Denies easy bleeding Exam Const: General: cooperative, healthy appearing, comfortable, no acute distress, well developed, awake, Physically active, average body habitus and well nourished Nutritional Appearance: average body habitus and well nourished Orientation/consciousness: oriented to person, oriented to place, oriented to time and patient oriented x3 Limitations: no limitations HENMT: Head: normal to inspection, No palpable skull fracture present, normocephalic, atraumatic and abrasion Ears: hearing grossly normal bilaterally and external ears normal Face/Nose/Sinus: Normal external nose present and Normal nares present Eyes: General: appearance normal, both eyes and all related structures Alignment and Position: alignment normal Periorbital: periorbital findings normal Eyelids: eyelids normal Cornea: corneas normal Pupils: Equal, round and reactive pupils present EOM: EOMs intact bilaterally Neck: Neck: normal visual inspection, full ROM, no lymphadenopathy, trachea midline and supple Chest: Chest palpation & inspection: normal inspection of the chest Resp: Effort & Inspection: normal respiratory effort Auscultation: clear to auscultation bilaterally Cardio: Palpation: normal PMI Rate: regular rate Rhythm: regular rhythm Heart sounds: S1 normal heart sound present and S2 normal heart sound present Peripheral pulses: Peripheral pulses 2+ throughout GI: Inspection: normal to inspection Auscultation: normal bowel sounds Rectal Exam: deferred Back/Spine/Pelvis: Cervical Spine: cervical ROM normal Skin: General skin exam: normal color Lesions: no lesions Rashes: no rashes Trauma: no lacerations or abrasions Wounds: no wounds Hair: normal Nails: normal Ne
[2023-04-03 11:25] LABS: Glucose Point of Care 173 mg/dl (65-105)
[2023-04-03] MEDS: amLODIPine BESYLATE 5 MG TABLET 10 MG PO (12:13)
[2023-04-03] MEDS: TIMOLOL MALEATE 0.5% OP SOLN 5 ML BOTTLE 1 DROP EACH EYE ×2 (12:14→17:13)
[2023-04-03] MEDS: hydroCHLOROthiazide 12.5 MG CAPSULE PO (12:14)
[2023-04-03 14:00] VITALS: BP 137/69; PULSE 93; RESP 16; TEMP 36.7; O2SAT 99
[2023-04-03 16:27] LABS: Glucose Point of Care 125 mg/dl (65-105)
[2023-04-03 20:00] VITALS: O2SAT 99
[2023-04-03] MEDS: TOLTERODINE TARTRATE 2 MG TABLET PO (20:06)
[2023-04-03] MEDS: DULoxetine HCL 60 MG CAPSULE.DR PO (20:06)
[2023-04-03] MEDS: ROSUVASTATIN 10 MG TABLET 40 MG PO (20:06)
[2023-04-03 21:07] LABS: Glucose Point of Care 155 mg/dl (65-105)
[2023-04-03 21:53] VITALS: BP 152/69; PULSE 91; RESP 16; TEMP 36.2; O2SAT 97
[2023-04-04] MEDS: HYDROcodone/acetaminophen (*CRX) 7.5-325 MG TABLET 1 TAB PO ×4 (00:12→12:19)
[2023-04-04 01:25] VITALS: PULSE 72; RESP 18; O2SAT 96
[2023-04-04 06:00] VITALS: BP 131/53; PULSE 98; RESP 16; TEMP 36.1; O2SAT 95
[2023-04-04 07:42] LABS: Glucose Point of Care 123 mg/dl (65-105)
[2023-04-04 09:06] LABS: Anion Gap 0 mmol/L (8-16); Blood Urea Nitrogen 10 mg/dL (7-17); Calcium 8.6 mg/dL (8.4-10.2); Carbon Dioxide 37 mmol/L (22-30); Chloride 99 mmol/L (98-107); Estimated CRCL calculation 70 ml/min; Estimated Glomerular Filt Rate > 60; Glucose 127 mg/dL (65-110); Potassium 4.3 mmol/L (3.4-5.0); Sodium 136 mmol/L (137-145)
[2023-04-04] MEDS: CALCIUM CARBONATE (OSCAL) 500 MG TABLET PO (09:40)
[2023-04-04] MEDS: hydroCHLOROthiazide 12.5 MG CAPSULE PO (09:40)
[2023-04-04] MEDS: SENNA/DOCUSATE SODIUM TABLET 2 TAB PO (09:40)
[2023-04-04] MEDS: ARIPiprazole 2 MG TABLET PO (09:40)
[2023-04-04] MEDS: PANTOPRAZOLE 40 MG TABLET PO (09:41)
[2023-04-04] MEDS: MULTIVITAMINS THERAPEUTIC TAB (*BKC) 1 TABLET PO (09:41)
[2023-04-04] MEDS: FERROUS SULFATE DRIED 142 MG TABCR PO (09:41)
[2023-04-04] MEDS: RIVAROXABAN 10 MG TABLET PO (09:41)
[2023-04-04] MEDS: amLODIPine BESYLATE 5 MG TABLET 10 MG PO (09:41)
[2023-04-04] MEDS: TIMOLOL MALEATE 0.5% OP SOLN 5 ML BOTTLE 1 DROP EACH EYE (09:43)
[2023-04-04 11:34] LABS: Glucose Point of Care 164 mg/dl (65-105)
--- NOTE | 2023-04-04 11:49 | PM.IMPN ---
Progress Note: A&P Assessment and Plan (1) S/P total knee arthroplasty: Qualifiers: Laterality: right Qualified Code(s): Z96.651 - Presence of right artificial knee joint Code(s): Z96.659 - Presence of unspecified artificial knee joint Status: Acute Assessment and Plan: Postop care per Dr. Mike DVT prophylaxis per Orthopedic the patient is on Xarelto and has SCDs Pain management per Ortho. PT OT per ortho. (2) Diabetes: Code(s): E11.9 - Type 2 diabetes mellitus without complications Status: Acute Assessment and Plan: Accu-Cheks AC and HS with sliding scale insulin. Continue with diabetic on the treated carbohydrate diet (3) Hypertension: Code(s): I10 - Essential (primary) hypertension Status: Acute Assessment and Plan: Blood pressure elevated. hydrochlorothiazide. Continue with amlodipine (4) Depression: Code(s): F32.A - Depression, unspecified Status: Acute Assessment and Plan: Continue with Abilify (5) Anxiety: Code(s): F41.9 - Anxiety disorder, unspecified Status: Acute Assessment and Plan: Continue with duloxetine (6) Sleep apnea: Code(s): G47.30 - Sleep apnea, unspecified Status: Acute Assessment and Plan: On a CPAP. (7) Hyperlipidemia: Code(s): E78.5 - Hyperlipidemia, unspecified Status: Acute Assessment and Plan: Continue with Crestor Subjective Date/time seen: 04/04/23 11:49 Interval history: No overnight issues Review of Systems Constitutional: Constitutional: Denies anorexia Eyes: Eyes: Denies irritation and Denies loss of vision ENT: Reports Normal hearing present Cardiovascular: Cardiovascular: Denies chest pain and Denies dyspnea on exertion Respiratory: Respiratory: Denies cough and Denies dyspnea on exertion Gastrointestinal: Gastrointestinal: Denies abdominal pain and Denies bloating Genitourinary: Genitourinary: Denies dysuria Musculoskeletal: Musculoskeletal: Denies arthralgias Integumentary/Breasts: Skin/Breast: Denies skin ulcer Neurologic: Reports Normal hearing present and Denies loss of vision Hematologic/Lymphatic: Hematologic/Lymphatic: Denies easy bleeding Exam Const: General: cooperative, healthy appearing, comfortable, no acute distress, well developed, awake, Physically active, average body habitus and well nourished Nutritional Appearance: average body habitus and well nourished Orientation/consciousness: oriented to person, oriented to place, oriented to time and patient oriented x3 Limitations: no limitations HENMT: Head: normal to inspection, No palpable skull fracture present, normocephalic, atraumatic and abrasion Ears: hearing grossly normal bilaterally and external ears normal Face/Nose/Sinus: Normal external nose present and Normal nares present Eyes: General: appearance normal, both eyes and all related structures Alignment and Position: alignment normal Periorbital: periorbital findings normal Eyelids: eyelids normal Cornea: corneas normal Pupils: Equal, round and reactive pupils present EOM: EOMs intact bilaterally Neck: Neck: normal visual inspection, full ROM, no lymphadenopathy, trachea midline and supple Chest: Chest palpation & inspection: normal inspection of the chest Resp: Effort & Inspection: normal respiratory effort Auscultation: clear to auscultation bilaterally Cardio: Palpation: normal PMI Rate: regular rate Rhythm: regular rhythm Heart sounds: S1 normal heart sound present and S2 normal heart sound present Peripheral pulses: Peripheral pulses 2+ throughout GI: Inspection: normal to inspection Auscultation: normal bowel sounds Rectal Exam: deferred Back/Spine/Pelvis: Cervical Spine: cervical ROM normal Skin: General skin exam: normal color Lesions: no lesions Rashes: no rashes Trauma: no lacerations or abrasions Wounds: no wounds Hair: normal Nails: normal N
--- NOTE | 2023-04-04 12:22 | PM.DS ---
DS: Admitting Diagnosis Discharge Date April 04, 2023 Admitting Diagnosis Osteoarthritis right knee DS: Discharge Diagnosis Discharge Diagnosis (1) S/P total knee arthroplasty: Qualifiers: Laterality: right Qualified Code(s): Z96.651 - Presence of right artificial knee joint Code(s): Z96.659 - Presence of unspecified artificial knee joint Status: Acute Plan Plan discharge home today. Home health has been set up for her. Instructions were reviewed in detail. She has an appointment to see me at the two week point from her surgery. DS: Summary Hospital Course Reason for hospitalization: Observation following up patient procedure. Hospital Course: Following the patient's total knee replacement on April 01, 2023, she was admitted to the floor to begin physical therapy. She made slow progress but was discharged home on postop day three. She was seen by the hospitalist during her stay for medical management. There were no significant issues there. Status at Discharge Functional status at discharge: uses cane/walker Overall status at discharge: patient is not back to baseline Time Spent with Patient Time attestation: Total time spent providing and/or coordinating discharge services: Exam Const: General: cooperative, no acute distress and alert Nutritional Appearance: other Orientation/consciousness: patient oriented x3 Limitations: No no limitations (Limited ambulation ability due to recent surgery) HENMT: Head: normal to inspection Chest: Chest palpation & inspection: normal inspection of the chest Resp: Effort & Inspection: normal respiratory effort and able to speak in complete sentences GI: Inspection: other (Nondistended) Neuro: General: patient oriented x3 Cognition (Neuro): normal cognition Speech: normal speech Gait exam (Neuro): Other gait observations present Extrem: General: normal to inspection and other Other: Exam of the right knee shows scant sanguinous drainage at the distal most portion of the knee wound. Mepilex dressing and Matt wraps were reapplied. Calves are negative. Minimal irritability in the knee today. Virtually no swelling in the knee. Psych: Appearance: grossly normal Mental Status: mental status grossly normal DS: Data Data Completed and Pending Labs on day of discharge: Labs from last 24 hours 04/04/23 04/04/23 04/04/23 11:22 08:48 07:31 Sodium 136 L Potassium 4.3 Chloride 99 Carbon Dioxide 37 H Anion Gap 0 L BUN 10 D Creatinine 0.60 L Estim Creat Clear Calc 70 Estimated GFR > 60 Glucose 127 H POC Capillary Glucose 164 H 123 H Calcium 8.6 04/03/23 04/03/23 20:43 16:23 Sodium Potassium Chloride Carbon Dioxide Anion Gap BUN Creatinine Estim Creat Clear Calc Estimated GFR Glucose POC Capillary Glucose 155 H 125 H Calcium Discharge Plan Discharge Attending physician on discharge: Salvatore Mike Consulting providers: Petey Alejandre Discharging Clinician: Salvatore Mike Patient Disposition: Home Health Service Activity: no shower, no driving and other - see discharge instructions Diet: diabetic Wound Care Instructions: follow printed instructions and other - see discharge instructions Discharge Instructions: 3 times daily for 20 minutes each time, reclining in bed with ice packs over the incision and a pillow underneath the calf of the affected leg, not under the knee. Your wound is glued so it is okay to remove the dressing, get into the shower and get the wound wet in two days. Be sure to read through all the information that came from a my office and the hospital. Most of the answers you will need can be found that material. Call the office with any questions that you cannot find answers to, or concerns you may have. After the Xarelto is completed, start taking one coated 325 mg aspirin daily and do this for four more weeks. Mandy
--- NOTE | 2023-04-04 14:04 | PCPTNOTE ---
Patient declined PT due to anticipated discharge.
== END 2023-04-04 14:45 | disposition home health service (06) ==
LOC: ANHSURGERY 14:30 → ANH3MEDSUR 14:30
PROVIDERS: Hospitalist; Nurse Practitioner; Admitting Provider Orthopaedic Surgery; PCP Internal Medicine; Visit Provider Orthopaedic Surgery
PROC: (CPT 27447; principal; 2023-04-01 07:30)
DX: M17.0 Bilateral primary osteoarthritis of knee (principal); D64.9 Anemia, unspecified; F41.9 Anxiety disorder, unspecified; G89.18 Other acute postprocedural pain; J45.909 Unspecified asthma, uncomplicated; F32.A Depression, unspecified; I10 Essential (primary) hypertension; E11.40 Type 2 diabetes mellitus with diabetic neuropathy, unspecified; E78.5 Hyperlipidemia, unspecified; R32 Unspecified urinary incontinence; E66.9 Obesity, unspecified; Z68.36 Body mass index [BMI] 36.0-36.9, adult; G47.30 Sleep apnea, unspecified; F10.90 Alcohol use, unspecified, uncomplicated; Z87.891 Personal history of nicotine dependence; Z79.4 Long term (current) use of insulin; Z79.891 Long term (current) use of opiate analgesic; Z79.899 Other long term (current) drug therapy
CPT/HCPCS: 64447; 27447; 36415; 73560; 80048; 80307; 82040; 82948; 83036; 85025; 87081; 97110; 97116; 97161; 97165; 97530; 97535; A9270; C1713; G0378; J0171; J0690; J1100; J1170; J2250; J2270; J2405; J2704; J2795; J3010; J3301; J7030; J7120